=== PATIENT | female | born 1940 | race Caucasian/White ===

== ENCOUNTER 2021-07-12 07:01 | Day surgery (SDC) | payer OTHER ==
[2021-07-07 11:43] VITALS: BMI 18.8
[2021-07-12] MEDS: CYCLOPENTOLATE 2% OPHTH SOLN 2 ML BOTTLE ONE ×3 (07:25→07:35)
[2021-07-12] MEDS: CIPROFLOXACIN 0.3% EYE DROPS 5 ML BOTTLE ONE ×3 (07:25→07:35)
[2021-07-12] MEDS: PHENYLEPHRINE 2.5% OPHTH SOLN 15 ML BOTTLE ONE ×3 (07:25→07:35)
[2021-07-12] MEDS: TROPICAMIDE 1% OPHTH SOLN 15 ML BOTTLE ONE ×3 (07:25→07:35)
[2021-07-12 07:34] VITALS: TEMP 98.3
[2021-07-12] MEDS ORDERED: TETRACAINE 0.5% OPHTH SOLN 2 ML BOTTLE ONE (08:22)
[2021-07-12] MEDS ORDERED: BSS (NA/CA/MG/K) BALANCED SALT SOLUTION OPHTH SOLN 15 ML BOTTLE ONE (08:22)
[2021-07-12] MEDS ORDERED: LIDOCAINE 1% P/F 10 MG/ML VIAL ONE (08:22)
[2021-07-12] MEDS ORDERED: CARBACHOL 0.01% INTRA-OCULAR 1.5 ML VIAL ONE (08:23)
[2021-07-12] MEDS ORDERED: NEO/POLYMYX B SULF/DEXAMETH OPHTHALMIC 5ML BOTTLE ONE (08:23)
[2021-07-12] MEDS ORDERED: MIDAZOLAM HCL 2 MG/2 ML SINGLE DOSE VIAL ONE (08:31)
[2021-07-12] MEDS ORDERED: KETOROLAC TROMETHAMINE 30 MG/1 ML VIAL ONE (08:39)
[2021-07-12 10:02] VITALS: BP 120/71; PULSE 64
== END 2021-07-12 10:00 | disposition home or self-care (01) ==
LOC: FASU 07:01
PROVIDERS: ATTEND Ophthalmology
PROC: 08RK3JZ Replacement of Left Lens with Synthetic Substitute, Percutaneous Approach (ICD-10-PCS; principal; 2021-07-12 08:41)
DX: H26.8 Other specified cataract (principal)

== ENCOUNTER 2021-08-30 07:00 | Day surgery (SDC) | payer OTHER ==
[2021-08-25 12:43] VITALS: BMI 18.8
[2021-08-30] MEDS: CIPROFLOXACIN 0.3% EYE DROPS 5 ML BOTTLE ONE ×3 (07:40→07:50)
[2021-08-30] MEDS: PHENYLEPHRINE 2.5% OPHTH SOLN 15 ML BOTTLE ONE ×3 (07:40→07:50)
[2021-08-30] MEDS: TROPICAMIDE 1% OPHTH SOLN 15 ML BOTTLE ONE ×3 (07:40→07:50)
[2021-08-30] MEDS: CYCLOPENTOLATE 2% OPHTH SOLN 2 ML BOTTLE ONE ×3 (07:40→07:50)
[2021-08-30] MEDS ORDERED: MIDAZOLAM HCL 2 MG/2 ML SINGLE DOSE VIAL ONE (08:55)
[2021-08-30 09:34] VITALS: PULSE 85; TEMP 97.4
[2021-08-30 10:02] VITALS: BP 119/74
== END 2021-08-30 10:17 | disposition home or self-care (01) ==
LOC: FASU 07:00
PROVIDERS: ATTEND Ophthalmology
PROC: 08RJ3JZ Replacement of Right Lens with Synthetic Substitute, Percutaneous Approach (ICD-10-PCS; principal; 2021-08-30 09:00)
DX: H26.8 Other specified cataract (principal)